=== PATIENT | male | born 1985 | race Caucasian/White ===

== ENCOUNTER 2020-04-04 09:43 | Emergency (ER) | payer OTHER ==
[2020-04-04 09:58] VITALS: BP 123/80; PULSE 83; TEMP 98.2; BMI 30.1
[2020-04-04] MEDS ORDERED: METHOCARBAMOL 500 MG TABLET PO ONE (10:18)
[2020-04-04] MEDS ORDERED: LIDOCAINE 5% TOPICAL PATCH TP ONE (10:18)
[2020-04-04] MEDS ORDERED: LIDOCAINE 5% TOPICAL PATCH ONE (10:23)
[2020-04-04] MEDS ORDERED: METHOCARBAMOL 500 MG TABLET ONE ×2 (10:23)
[2020-04-04] MEDS ORDERED: LIDOCAINE PATCH REMOVAL MC SCH (22:00)
== END 2020-04-04 10:44 | disposition home or self-care (01) ==
LOC: JERFT 09:43 → JER 09:43 → JERFT 10:44
DX: S39.012A Strain of muscle, fascia and tendon of lower back, initial encounter (principal)
CPT/HCPCS: 99284-25

== ENCOUNTER → 2021-07-30 | Emergency (ER) | payer OTHER ==
[2021-07-30 11:41] VITALS: BP 105/61; PULSE 78; TEMP 98.6; BMI 26.5
== END ==
LOC: JERFT 11:35
DX: M54.50 Low back pain, unspecified (principal)
CPT/HCPCS: 99281-25

== ENCOUNTER 2021-12-22 14:29 | Emergency (ER) | payer OTHER ==
[2021-12-22 14:51] VITALS: BP 112/63; PULSE 69; RESP 18; TEMP 98.1; BMI 26.5
== END 2021-12-22 16:12 | disposition home or self-care (01) ==
LOC: JERFT 14:29
DX: M54.50 Low back pain, unspecified (principal)
CPT/HCPCS: 72100-TC-FY; 99283-25

== ENCOUNTER 2022-04-09 14:59 | Emergency (ER) | payer OTHER ==
[2022-04-09 15:05] VITALS: BP 121/64; PULSE 87; RESP 18; TEMP 97.8; BMI 26.5
[2022-04-09] MEDS ORDERED: ACETAMINOPHEN 500 MG TABLET (FP) PO ONE (15:42)
[2022-04-09] MEDS ORDERED: ACETAMINOPHEN 500 MG TABLET (FP) ONE (15:44)
== END 2022-04-09 16:08 | disposition home or self-care (01) ==
LOC: JERFT 14:59 → JER 14:59 → JERFT 16:08
DX: S29.012A Strain of muscle and tendon of back wall of thorax, initial encounter (principal); X50.0XXA Overexertion from strenuous movement or load, initial encounter; Y99.0 Civilian activity done for income or pay
CPT/HCPCS: 99282-25

== ENCOUNTER 2023-03-08 14:41 | Emergency (ER) | payer OTHER ==
[2023-03-08 14:56] VITALS: BP 124/74; PULSE 90; RESP 18; TEMP 98.2; BMI 26.5
[2023-03-08] MEDS ORDERED: ACETAMINOPHEN 500 MG TABLET (FP) PO ONE (16:15)
[2023-03-08] MEDS ORDERED: ACETAMINOPHEN 500 MG TABLET (FP) ONE (16:34)
== END 2023-03-08 17:10 | disposition home or self-care (01) ==
LOC: JERFT 14:41
DX: M79.644 Pain in right finger(s) (principal); W22.8XXA Striking against or struck by other objects, initial encounter; Y99.0 Civilian activity done for income or pay
CPT/HCPCS: 73130-TC-RT-FY; 99283-25

== ENCOUNTER 2023-09-22 14:09 | Emergency (ER) | payer OTHER ==
[2023-09-22 14:14] VITALS: BP 118/67; PULSE 69; RESP 19; TEMP 98.8; BMI 25.8
[2023-09-22] MEDS ORDERED: IBUPROFEN 400 MG TABLET (FP) PO ONE (14:46)
[2023-09-22] MEDS ORDERED: LIDOCAINE 4% PATCH TP ONE (14:46)
[2023-09-22] MEDS ORDERED: METHOCARBAMOL 500 MG TABLET ONE (14:47)
[2023-09-22] MEDS ORDERED: ACETAMINOPHEN 500 MG TABLET (FP) ONE (14:48)
[2023-09-22] MEDS: ACETAMINOPHEN 500 MG TABLET (FP) PO ONE (14:53)
[2023-09-22] MEDS: IBUPROFEN 400 MG TABLET (FP) PO ONE (14:54)
[2023-09-22] MEDS: LIDOCAINE 4% PATCH TP ONE (14:54)
[2023-09-22] MEDS: METHOCARBAMOL 750 MG TAB PO ONE (14:54)
[2023-09-22] MEDS ORDERED: LIDOCAINE PATCH REMOVAL MC SCH (22:00)
== END 2023-09-22 15:39 | disposition home or self-care (01) ==
LOC: JERFT 14:09
DX: M54.50 Low back pain, unspecified (principal)
CPT/HCPCS: 99283-25